=== PATIENT | female | born 1985 | race Caucasian/White ===

== ENCOUNTER 2017-09-11 22:57 | Emergency (ER) | payer OTHER ==
[~2017-09-11] VITALS: Ht 160 cm; Wt 72.0 kg
[2017-09-11 23:15] VITALS: Ht 160 cm; Wt 72.0 kg
--- NOTE | 2017-09-12 00:09 | RADRPT ---
PROCEDURE: ULTRASOUND BILATERAL LOWER EXTREMITY VENOUS CLINICAL INDICATION: 32-year-old female with lower extremity pain and swelling. TECHNIQUE: Multiple sonographic images of the bilateral lower extremity deep venous system was obt ained utilizing grayscale, color-flow, compressive sonography and doppler imaging with augmentation. The images were reviewed on a PACS workstation. COMPARISON: None. FINDINGS: There is normal compressibility and flow within the common femoral, deep femoral, superficial femora l, popliteal, posterior tibial and peroneal veins. IMPRESSION: No sonographic evidence for deep venous thrombosis. .Mehran Aleman MD, MD Date Time Electronically viewed and signed by .Mehran Aleman MD, MD on 09/12/2017 00:09 .Ko
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
[2017-09-12] MEDS ORDERED: IBUP800T25 PO (00:21)
== END 2017-09-12 00:33 | disposition home or self-care (01) ==
LOC: FTE 22:57
DX: R60.0 Localized edema (principal); J45.909 Unspecified asthma, uncomplicated; F17.210 Nicotine dependence, cigarettes, uncomplicated
CPT/HCPCS: 93970; Z7502; 99283